=== PATIENT | male | born 1985 | race Hispanic/Latino ===

== ENCOUNTER 2016-12-31 14:48 | Emergency (ER) | payer OTHER ==
[~2016-12-31] VITALS: Ht 185.4 cm; Wt 84.1 kg
[2016-12-31 15:18] VITALS: BP 139/85; PULSE 66; RESP 20; O2SAT 100
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
[2016-12-31] MEDS ORDERED: 0.9% Sodium Chloride 1,000 ML IV ONE (16:45)
--- NOTE | 2016-12-31 16:50 | DRSVH ---
PROCEDURE: X-RAY CERVICAL SPINE, 2 OR 3 VIEWS INDICATIONS: NECK PAIN TECHNIQUE: 3 view(s) of the cervical spine were acquired. COMPARISON: None. FINDINGS: Bones: No fractures or dislocations to the T1 level. The lateral masses of C1 appear intact on the odontoid view. No suspicious bony lesions. Soft tissues: No prevertebral soft tissue swelling. IMPRESSION: Mild degenerative disc disease at C4-5 and C5-6 and to a lesser degree C6-7. No subluxat ion is associated. No trauma found. Dictated by: Ronaldo Stevens M.D. on 12/31/2016 at 16:48 Approved by: Ronaldo Stevens M.D. on 12/31/2016 at 16:49
--- NOTE | 2016-12-31 16:51 | DRSVH ---
PROCEDURE: X-RAY LEFT SHOULDER, MINIMUM TWO VIEWS ([id number]) INDICATIONS: SHOULDER PAIN TECHNIQUE: 2 views of the shoulder were acquired. COMPARISON: None. FINDINGS: Bones: No fractures or dislocations. No suspicious bony lesions. Visualized ribs appear intact. Soft tissues: No suspicious soft tissue calcifications. IMPRESSION: No trauma. Dictated by: Ronaldo Stevens M.D. on 12/31/2016 at 16:49 Approved by: Ronaldo Stevens M.D. on 12/31/2016 at 16:49
[2016-12-31] MEDS ORDERED: HYDR-4003 PO (17:38)
[2016-12-31 18:22] VITALS: BP 145/87; PULSE 69; RESP 15; O2SAT 98
== END 2016-12-31 18:23 | disposition home or self-care (01) ==
LOC: SED 14:48
DX: S40.012A Contusion of left shoulder, initial encounter (principal); M25.552 Pain in left hip; V86.59XA Driver of other special all-terrain or other off-road motor vehicle injured in nontraffic accident, initial encounter; Y93.89 Activity, other specified; Y99.8 Other external cause status; Y92.89 Other specified places as the place of occurrence of the external cause
CPT/HCPCS: 72040; 73030; 99284; G0390